=== PATIENT | male | born 1995 | race Caucasian/White ===

== ENCOUNTER 2018-03-25 15:38 | Emergency (ER) | payer BC ==
[2018-03-25 16:01] VITALS: RESP 18
[2018-03-25 16:47] LABS: SQUAMOUS EPITHIAL 1 /hpf (0-5); URINE BACTERIA RARE (<OCC); URINE BILIRUBIN 2+ (NEGATIVE); URINE BLOOD NEGATIVE (NEGATIVE); URINE CLARITY Hazy (Clear); URINE COLOR Amber (YELLOW); URINE GLUCOSE (UA) NORMAL (Normal); URINE HYALINE CAST >20 /lpf (0-2); URINE LEUKOCYTE ESTERASE NEG Leu/uL (Negative); URINE PROTEIN 2+ mg/dL (NEGATIVE)
--- NOTE | 2018-03-25 17:07 | C.PDOC ---
History Of Present Illness 22 y/o male, who does heavy lifting all day at work, comes in complaining of a 5 day history of lower back pain that worsens when he sits or stands, and described as an aching pain. Patient also complains of having pubic pain and right testicular pain for the past 4 days. Patient has a history of urinary retention and was diagnosed by a urologist here. Patient states he does not take the medications that were prescribed to him. Denies fever, painful urination, trauma to area, chills, or other symptoms. Patient believes the source of his back pain may be due to the heavy lifting at work. States his job told him to get checked before he is able to come back to work. Time Seen by Provider: 03/25/18 16:06 Chief Complaint (Nursing): Male Genitourinary History Per: Patient History/Exam Limitations: no limitations Onset/Duration Of Symptoms: Days Current Symptoms Are (Timing): Still Present Past Medical History Reviewed: Historical Data, Nursing Documentation, Vital Signs Vital Signs: Last Vital Signs Temp 98.5 F 03/25/18 15:57 Pulse 68 03/25/18 15:57 Resp 18 03/25/18 15:57 BP 116/70 03/25/18 15:57 Pulse Ox 99 03/25/18 15:57 Family History: States: No Known Family Hx - Social History Hx Alcohol Use: No Hx Substance Use: No - Immunization History Hx Influenza Vaccination: No Hx Pneumococcal Vaccination: No Review Of Systems Constitutional: Negative for: Fever, Chills Cardiovascular: Negative for: Chest Pain Respiratory: Negative for: Cough, Shortness of Breath Gastrointestinal: Negative for: Nausea, Vomiting, Abdominal Pain Genitourinary: Positive for: Penile Pain, Other (Right testicular pain). Negative for: Dysuria Musculoskeletal: Positive for: Back Pain (lower back) Neurological: Negative for: Weakness, Numbness, Dizziness Physical Exam - Physical Exam Appears: Non-toxic, No Acute Distress Skin: Warm, Dry Head: Atraumatic, Normacephalic Eye(s): bilateral: Normal Inspection Oral Mucosa: Moist Neck: Normal ROM, Supple Chest: Symmetrical Cardiovascular: Rhythm Regular, No Murmur Respiratory: Normal Breath Sounds, No Accessory Muscle Use, No Rales, No Rhonchi, No Wheezing Gastrointestinal/Abdominal: Soft, No Tenderness Back: Other (mild lumbar tenderness) Male Genital: Testicular Tenderness (right-sided), No Testicular Swelling, Inguinal Tenderness (right-sided), Other (no palpable epididymal enlargement) Extremity: Bilateral: Normal ROM Neurological/Psych: Oriented x3, Normal Speech, Normal Motor Gait: Steady ED Course And Treatment - Laboratory Results Lab Results: Urine Color Sonia (YELLOW) 03/25/18 16:40 Urine Clarity Hazy (Clear) 03/25/18 16:40 Urine pH 6.0 (5.0-8.0) 03/25/18 16:40 Ur Specific Winton 1.033 (1.003-1.030) H 03/25/18 16:40 Urine Protein 2+ mg/dL (NEGATIVE) H 03/25/18 16:40 Urine Glucose (UA) Normal mg/dL (Normal) 03/25/18 16:40 Urine Ketones Negative mg/dL (NEGATIVE) 03/25/18 16:40 Urine Blood Negative (NEGATIVE) 03/25/18 16:40 Urine Nitrate Negative (NEGATIVE) 03/25/18 16:40 Urine Bilirubin 2+ (NEGATIVE) H 03/25/18 16:40 Urine Urobilinogen 2.0 mg/dL (0.2-1.0) 03/25/18 16:40 Ur Leukocyte Esterase Neg Ashleigh/uL (Negative) 03/25/18 16:40 Urine WBC (Auto) 4 /hpf (0-5) 03/25/18 16:40 Urine RBC (Auto) 3 /hpf (0-3) 03/25/18 16:40 Ur Squamous Epith Cells 1 /hpf (0-5) 03/25/18 16:40 Urine Bacteria Rare (<OCC) 03/25/18 16:40 Hyaline Casts >20 /lpf (0-2) H 03/25/18 16:40 O2 Sat by Pulse Oximetry: 99 (RA) Pulse Ox Interpretation: Normal - CT Scan/US Testicular US Other Rad Studies (CT/US): Read By Radiologist, Radiology Report Reviewed CT/US Interpretation: FINDINGS: RIGHT TESTICLE: Measures 4.3 x 1.9 x 2.4 cm. Normal homogeneous echotexture a with arterial flow. There appear to be few scattered microcalcifications within the testicular parenchyma. In addition, there is a rounded calcification that measures approximately 3.2 x 2.4 x 3.4 mm and appears to be located external and dorsal to the right testicle possibly within the tunica albuginea... RIGHT EPIDIDYMIS: Epididymal head measures 9.7 9.7 x 9.5 x 10.7 mm. Grossly unremarkable appearance with normal flow. LEFT TESTICLE: Measures 3 4.0 x 1.6 x 2.5 cm. Normal homogeneous echotexture with arterial flow. Few scattered testicular microcalcifications present. . LEFT EPIDIDYMIS: Epididymal head measures 10.0 x 6.4 x 10.16 mm . Grossly unremarkable appearance with normal flow.. HYDROCELE: None. VARICOCELE: Questionable tiny left-sided varicocele. OTHER FINDINGS: None. IMPRESSION: There scattered testicular microcalcifications. There is a small calcification adjacent to the posterior margin of the right testicle possibly within the tunica albuginea. Suspect small left-sided varicocele. Medical Decision Making Medical Decision Making: Plan: --Testicular US --UA R/o testicular torsion and infection. Patient may have back pain from possible herniated disc. When asked patient to cough, patient had small right-sided inguinal hernia that may be the source of pain. Disposition - Disposition Referrals: Josh Ahmadi MD [Staff Provider] - Disposition: HOME/ ROUTINE Disposition Time: 18:22 Condition: STABLE Prescriptions: Ibuprofen [Motrin Tab] 600 mg PO TID #21 tab Instructions: Varicocele Forms: General Discharge Instructions, [facility] (Latvian), Work Excuse - Clinical Impression Clinical Impression: Varicocele present on ultrasound of scrotum, Low back pain - PA / [employer] / Resident Statement MD/DO has reviewed & agrees with the documentation as recorded. - Scribe Statement The provider has reviewed the documentation as recorded by the Ellieibjonatan Crespo All medical record entries made by the Roque were at my direction and personally dictated by me. I have reviewed the chart and agree that the record accurately reflects my personal performance of the history, physical exam, medical decision making, and the department course for this patient. I have also personally directed, reviewed, and agree with the discharge instructions and disposition.
--- NOTE | 2018-03-25 18:11 | US ---
Date of service: 03/25/2018 HISTORY: Testicular pain. TECHNIQUE: Realtime sonography through the scrotum with color and doppler flow. COMPARISON: None Available. FINDINGS: RIGHT TESTICLE: Measures 4.3 x 1.9 x 2.4 cm. Normal homogeneous echotexture a with arterial flow. There appear to be few scattered microcalcifications within the testicular parenchyma. In addition, there is a rounded calcification that measures approximately 3.2 x 2.4 x 3.4 mm and appears to be located external and dorsal to the right testicle possibly within the tunica albuginea... RIGHT EPIDIDYMIS: Epididymal head measures 9.7 9.7 x 9.5 x 10.7 mm. Grossly unremarkable appearance with normal flow. LEFT TESTICLE: Measures 3 4.0 x 1.6 x 2.5 cm. Normal homogeneous echotexture with arterial flow. Few scattered testicular microcalcifications present. . LEFT EPIDIDYMIS: Epididymal head measures 10.0 x 6.4 x 10.16 mm . Grossly unremarkable appearance with normal flow.. HYDROCELE: None. VARICOCELE: Questionable tiny left-sided varicocele OTHER FINDINGS: None. IMPRESSION: There scattered testicular microcalcifications. There is a small calcification adjacent to the posterior margin of the right testicle possibly within the tunica albuginea. Suspect small left-sided varicocele.
[2018-03-25 18:47] VITALS: BP 123/74; PULSE 88; TEMP 98
[2018-03-25 18:59] VITALS: O2SAT 99
== END 2018-03-25 18:46 | disposition home or self-care (01) ==
LOC: C.ER 15:38
DX: I86.1 Scrotal varices (principal); M54.5 Low back pain